=== PATIENT | female | born 1980 | race African-American/Black ===

== ENCOUNTER 2017-07-06 09:36 | Outpatient (CLI) | payer OTHER ==
[~2017-07-06 09:36] MED LIST: SMZ-TMP DS 800-1 TAB PO; TUSSI PRES-B L120 M1 PO; ZITHROMAX TRI-500 MG PO
== END 2017-07-06 09:41 | disposition home or self-care (01) ==
LOC: SONOGRAMA 09:36
DX: N83.01 Follicular cyst of right ovary (principal)

== ENCOUNTER → 2017-07-25 | Emergency (ER) | payer OTHER ==
[~2017-07-25] VITALS: Ht 149.9 cm; Wt 59.9 kg
== END | disposition home or self-care (01) ==
LOC: ER 09:48
DX: R22.1 Localized swelling, mass and lump, neck (principal)

== ENCOUNTER → 2018-03-08 | Emergency (ER) | payer OTHER ==
[~2018-03-08] VITALS: Ht 121.9 cm; Wt 63.0 kg
== END | disposition home or self-care (01) ==
LOC: ER 16:28
DX: R19.04 Left lower quadrant abdominal swelling, mass and lump (principal); M54.5 Low back pain

== ENCOUNTER 2018-03-12 13:29 | Inpatient (IN) | payer OTHER ==
[~2018-03-12] VITALS: Ht 149.9 cm; Wt 63.0 kg
[2018-03-18] MEDS ORDERED: PERCOCET 5-3251 EACH PO (13:18)
== END 2018-03-18 13:23 | DRG 742 ==
LOC: OB/GYN 13:29
PROVIDERS: Specialist; Surgery; Urology
PROC: BU45ZZZ Ultrasonography of Bilateral Ovaries (ICD-10-PCS; 2018-03-12)
PROC: 0DNN0ZZ Release Sigmoid Colon, Open Approach (ICD-10-PCS; 2018-03-14)
PROC: 0T788DZ Dilation of Bilateral Ureters with Intraluminal Device, Via Natural or Artificial Opening Endoscopic (ICD-10-PCS; 2018-03-14)
PROC: 0DJD8ZZ Inspection of Lower Intestinal Tract, Via Natural or Artificial Opening Endoscopic (ICD-10-PCS; 2018-03-14)
PROC: 0UT70ZZ Resection of Bilateral Fallopian Tubes, Open Approach (ICD-10-PCS; principal; 2018-03-14 07:00)
PROC: 0UT20ZZ Resection of Bilateral Ovaries, Open Approach (ICD-10-PCS; 2018-03-14 07:00)
PROC: 0DQN0ZZ Repair Sigmoid Colon, Open Approach (ICD-10-PCS; 2018-03-14 07:00)
DX: N83.12 Corpus luteum cyst of left ovary (principal); N13.39 Other hydronephrosis; K91.72 Accidental puncture and laceration of a digestive system organ or structure during other procedure; K56.0 Paralytic ileus; K91.89 Other postprocedural complications and disorders of digestive system; N83.291 Other ovarian cyst, right side; N73.6 Female pelvic peritoneal adhesions (postinfective)

== ENCOUNTER 2018-03-23 13:03 | Inpatient (IN) | payer OTHER ==
[~2018-03-23] VITALS: Ht 149.9 cm; Wt 63.0 kg
[~2018-03-23 13:03] MED LIST changes: +PERCOCET 5-3251 EACH PO
[2018-03-27] MEDS ORDERED: LEVAQUIN500 MG PO (13:30)
[2018-03-27] MEDS ORDERED: INTESTINEX680 M1 PO (13:30)
== END 2018-03-27 14:30 | disposition home or self-care (01) | DRG 372 ==
LOC: ER 13:03 → SEC-K 03-24 07:09 → SURH 03-24 07:09
DX: A04.72 Enterocolitis due to Clostridium difficile, not specified as recurrent (principal); K51.518 Left sided colitis with other complication; B37.82 Candidal enteritis

== ENCOUNTER 2018-05-09 05:43 | Day surgery (SDC) | payer OTHER ==
[~2018-05-09 05:43] MED LIST changes: +INTESTINEX680 M1 PO; +LEVAQUIN500 MG PO
== END 2018-05-09 10:15 | disposition home or self-care (01) ==
LOC: AMB-ENDOS 05:43
DX: K64.1 Second degree hemorrhoids (principal)

== ENCOUNTER 2018-06-28 08:59 | Outpatient (CLI) | payer OTHER | END 2018-06-28 09:03 | disposition home or self-care (01) | LOC: RAD 08:59 | DX: K52.9 Noninfective gastroenteritis and colitis, unspecified (principal); K92.1 Melena; K59.02 Outlet dysfunction constipation ==

== ENCOUNTER 2018-07-02 08:15 | Inpatient (IN) | payer OTHER ==
[~2018-07-02] VITALS: Ht 165.1 cm; Wt 61.7 kg
== END 2018-07-11 17:56 | disposition home or self-care (01) | DRG 331 ==
LOC: ADM 08:15 → EDSTATUS 08:15 → O/R 07-08 07:19 → SURG 07-08 07:19 → SURH 07-08 08:15 → SURG 07-08 16:48
PROVIDERS: ADMIT Colon & Rectal Surgery
PROC: 0DTP4ZZ Resection of Rectum, Percutaneous Endoscopic Approach (ICD-10-PCS; 2018-07-08)
PROC: 0DJD8ZZ Inspection of Lower Intestinal Tract, Via Natural or Artificial Opening Endoscopic (ICD-10-PCS; 2018-07-08)
PROC: 0DTN4ZZ Resection of Sigmoid Colon, Percutaneous Endoscopic Approach (ICD-10-PCS; principal; 2018-07-08 10:00)
DX: K56.41 Fecal impaction (principal); K66.0 Peritoneal adhesions (postprocedural) (postinfection)

== ENCOUNTER 2019-08-07 05:11 | Day surgery (SDC) | payer OTHER | END 2019-08-07 09:30 | disposition home or self-care (01) | LOC: AMB-ENDOS 05:11 | DX: K62.89 Other specified diseases of anus and rectum (principal); K66.0 Peritoneal adhesions (postprocedural) (postinfection); K64.1 Second degree hemorrhoids ==

== ENCOUNTER 2020-08-04 08:24 | Outpatient (CLI) | payer OTHER | END 2020-08-04 08:30 | disposition home or self-care (01) | LOC: SONOGRAMA 08:24 | PROVIDERS: ATTEND Pathology Anatomic Pathology & Clinical Pathology | DX: R59.0 Localized enlarged lymph nodes (principal) ==

== ENCOUNTER 2020-09-28 09:43 | Outpatient (CLI) | payer OTHER | END 2020-09-28 12:51 | disposition home or self-care (01) | LOC: OFIC 805 09:43 | PROVIDERS: ATTEND Otolaryngology Otology & Neurotology | DX: D17.0 Benign lipomatous neoplasm of skin and subcutaneous tissue of head, face and neck (principal) ==

== ENCOUNTER 2021-09-02 22:43 | Emergency (ER) | payer OTHER ==
[~2021-09-02] VITALS: Ht 149.9 cm; Wt 63.5 kg
[2021-09-03] MEDS ORDERED: SURFAK240 M1 PO (04:28)
[2021-09-03] MEDS ORDERED: PEPCID20 MG PO (04:28)
[2021-09-03] MEDS ORDERED: CARAFATE1 GM PO (04:28)
== END 2021-09-03 04:33 | disposition home or self-care (01) ==
LOC: ER 22:43
DX: K29.00 Acute gastritis without bleeding (principal); K59.00 Constipation, unspecified

== ENCOUNTER 2022-10-31 18:38 | Emergency (ER) | payer OTHER ==
[~2022-10-31] VITALS: Ht 121.9 cm; Wt 64.9 kg
[~2022-10-31 18:38] MED LIST changes: +CARAFATE1 GM PO; +PEPCID20 MG PO; +SURFAK240 M1 PO
== END 2022-10-31 21:22 | disposition home or self-care (01) ==
LOC: ER 18:38
DX: K29.70 Gastritis, unspecified, without bleeding (principal); M79.18 Myalgia, other site

== ENCOUNTER 2023-03-15 18:02 | Emergency (ER) | payer OTHER ==
[~2023-03-15] VITALS: Ht 149.9 cm; Wt 65.8 kg
== END 2023-03-15 19:52 | disposition home or self-care (01) ==
LOC: ER 18:02 → EMR PED 18:18 → ER 18:18
DX: M75.01 Adhesive capsulitis of right shoulder (principal)

== ENCOUNTER 2024-02-01 15:30 | Emergency (ER) | payer OTHER ==
[~2024-02-01] VITALS: Ht 149.9 cm; Wt 65.8 kg
[2024-02-01] MEDS ORDERED: CEFTRIAXONE SODIUM 2,000 MG VIAL IM ONE (17:15)
[2024-02-01] MEDS ORDERED: BUTALB/ACETAMINOPHEN/CAFFEINE 1 TAB TABLET PO ONE ×2 (17:15→17:17)
[2024-02-01] MEDS ORDERED: CEFTRIAXONE SODIUM 2,000 MG VIAL ONE (17:18)
== END 2024-02-01 17:33 | disposition home or self-care (01) ==
LOC: ER 15:31
DX: R53.81 Other malaise (principal); H10.9 Unspecified conjunctivitis; J02.9 Acute pharyngitis, unspecified